=== PATIENT | male | born 1975 | race Two or more races ===

== ENCOUNTER 2025-04-21 11:31 | Emergency (ER) | payer BC ==
[~2025-04-21] VITALS: Ht 170.2 cm; Wt 59.9 kg
[2025-04-21 11:38] VITALS: BP 120/69; TEMP 98.5
[2025-04-21] MEDS ORDERED: OSEL75CA PO (11:45)
[2025-04-21 11:59] VITALS: O2SAT 98
== END 2025-04-21 12:00 | disposition home or self-care (01) ==
LOC: ER 11:52
DX: B34.9 Viral infection, unspecified (principal); R05.9 Cough, unspecified; R68.83 Chills (without fever); Z88.0 Allergy status to penicillin